=== PATIENT | female | born 1985 | race Caucasian/White ===

== ENCOUNTER 2016-08-27 09:00 | Emergency (ER) | payer OTHER ==
[2016-08-27 09:13] VITALS: BP 114/70
--- NOTE | 2016-08-27 10:43 | RAD ---
INDICATION: Trauma. COMPARISON: There are no prior studies available for comparison. TECHNIQUE: 5 views of the cervical spine were obtained including lateral, oblique, AP and open-mouth odontoid views. FINDINGS: C1-C7 are visualized. There is straightening of the cervical spine with loss of the normal cervical lordosis. No prevertebral soft tissue swelling or fracture is seen. Disc spaces appear maintained. IMPRESSION: STRAIGHTENING OF THE CERVICAL SPINE, NO EVIDENCE FOR FRACTURE.
--- NOTE | 2016-08-27 10:44 | RAD ---
INDICATION: Right shoulder injury. TECHNIQUE: 3 views of the right shoulder were obtained. FINDINGS: The bones are in normal alignment. No fracture is seen. Joint spaces appear maintained. IMPRESSION: NO EVIDENCE OF FRACTURE.
--- NOTE | 2016-08-27 10:45 | RAD ---
INDICATION: Right ankle injury. TECHNIQUE: 3 views of the right ankle were obtained. FINDINGS: Soft tissue swelling is noted along the anterolateral aspect of the ankle. No fracture is seen. Joint spaces appear maintained. IMPRESSION: SOFT TISSUE SWELLING, NO FRACTURE IS SEEN.
--- NOTE | 2016-08-27 10:57 | UC ---
Minor Trauma HPI - HPI Summary HPI Summary: FALL DOWN STAIRS , LANDED ON RIGHT SIDE, TWO DAYS AGO PAIN IN RIGHT SHOULDER AND RIGHT ANKLE CONTINUE. - History of Current Complaint Chief Complaint: UCUpperExtremity Stated Complaint: RIGHT ANKLE & SHOULDER Time Seen by Provider: 08/27/16 09:59 Hx Obtained From: Patient Hx Last Menstrual Period: pt on depo but is overdue for tx Onset/Duration: Sudden Onset, Lasting Days, Still Present Onset Of Pain: Post Accident Severity Initially: Moderate Severity Currently: Mild Mechanism Of Injury: Fall From A Standing Position, Twisted Aggravating Factor(s): Movement, Weight Bearing Alleviating Factor(s): Heat, Rest - Risk Factors Penetrating Injury Risk Factors: Negative - Allergies/Home Medications Allergies/Adverse Reactions: Allergies Allergy/AdvReac Type Severity Reaction Status Date / Time No Known Allergies Allergy Verified 08/27/16 09:13 Home Medications: Home Medications Ibuprofen TAB* [Motrin TAB* 600 MG] 600 mg PO Q6H PRN 08/27/16 [History Confirmed 08/27/16] PMH/Surg Hx/FS Hx/Imm Hx Previously Healthy: Yes Endocrine History Of: Denies: Diabetes Cardiovascular History Of: Denies: Cardiac Disorders Respiratory History Of: Denies: Asthma - Surgical History Surgical History: Yes Surgery Procedure, Year, and Place: 2010- hernia. 2009- . 2004- c- section - Family History Known Family History: Positive: Hypertension - Social History Occupation: Unemployed Lives: With Family Alcohol Use: Rare Substance Use Type: None Smoking Status (MU): Heavy Every Day Tobacco Smoker Type: Cigarettes Amount Used/How Often: 1/2 ppd Length of Time of Smoking/Using Tobacco: since age 18 Household Exposure Type: Cigarettes Cessation Counseling: Counseled 3+Min - 10 Min - Immunization History Most Recent Influenza Vaccination: 04/2014 Hx Tetanus, Diphtheria Vaccination: Yes Review of Systems Constitutional: Negative Skin: Negative Eyes: Negative ENT: Negative Respiratory: Negative Cardiovascular: Negative Gastrointestinal: Negative Genitourinary: Negative Motor: Negative Neurovascular: Negative Musculoskeletal: Arthralgia, Edema, Myalgia Neurological: Negative Psychological: Negative All Other Systems Reviewed And Are Negative: Yes Physical Exam Triage Information Reviewed: Yes Appearance: Well-Appearing, No Pain Distress, Well-Nourished Vital Signs: Initial Vital Signs Temp 98 F 08/27/16 09:03 Pulse 73 08/27/16 09:03 Resp 16 08/27/16 09:03 BP 114/70 08/27/16 09:03 Pulse Ox 100 08/27/16 09:03 Vital Signs Reviewed: Yes Eye Exam: Normal Eyes: Positive: Conjunctiva Clear ENT Exam: Normal ENT: Positive: Normal ENT inspection, Hearing grossly normal, Pharynx normal, TMs normal Dental Exam: Normal Neck: Positive: Supple, No Lymphadenopathy, Tenderness @ - TENDERNESS TO PALPATION OF PARASPINAL MUSCLES R>L. Negative: Nuchal Rigidity Respiratory Exam: Normal Respiratory: Positive: Chest non-tender, Lungs clear, Normal breath sounds, No respiratory distress, No accessory muscle use Cardiovascular Exam: Normal Cardiovascular: Positive: RRR, No Murmur, Pulses Normal Abdominal Exam: Normal Musculoskeletal: Positive: Strength Intact, ROM Intact, Edema @ - RIGHT ANKLE Neurological Exam: Normal Psychological Exam: Normal Skin Exam: Normal Minor Trauma Course/Dx - Differential Dx/Diagnosis Differential Diagnosis/HQI/PQRI: Sprain, Strain Provider Diagnoses: CERVICAL STRAIN. RIGHT SHOULDER STRAIN. RIGHT ANLE SPRAIN Discharge - Discharge Plan Condition: Stable Disposition: HOME Prescriptions: Cyclobenzaprine TAB* [Flexeril TAB*] 10 mg PO BID PRN #14 tab PRN Reason: Spasms Naproxen [Naproxen 500 MG TABS] 500 mg PO BID #14 tab Patient Education Materials: Cervical Strain (ED), Ankle Sprain (ED) Referrals: Barbara Hayward [Primary Care Provider] -
== END 2016-08-27 11:03 | disposition home or self-care (01) ==
LOC: UCCORT 09:00
DX: S46.911A Strain of unspecified muscle, fascia and tendon at shoulder and upper arm level, right arm, initial encounter (principal); S96.911A Strain of unspecified muscle and tendon at ankle and foot level, right foot, initial encounter; S16.1XXA Strain of muscle, fascia and tendon at neck level, initial encounter; W10.9XXA Fall (on) (from) unspecified stairs and steps, initial encounter; Y93.9 Activity, unspecified; Y92.9 Unspecified place or not applicable; F17.210 Nicotine dependence, cigarettes, uncomplicated
CPT/HCPCS: 72050; 81025; 99212; G0463